=== PATIENT | female | born 1970 | race Hispanic/Latino ===

== ENCOUNTER 2022-12-17 09:34 | Day surgery (SDC) | payer BC ==
[~2022-12-17] VITALS: Ht 165.1 cm; Wt 76.2 kg
[~2022-12-17 09:34] MED LIST: ATEN50TA PO; IOHEXOL-350 75 ML VIAL IV ONE; PANT40TA54 PO
[2022-12-17 11:00] VITALS: BP 160/89
[2022-12-17 14:50] VITALS: BP 114/64
[2022-12-17 15:00] VITALS: BP 116/83
[2022-12-17 15:10] VITALS: BP 115/82
[2022-12-17 15:20] VITALS: BP 125/84
== END 2022-12-17 15:30 | disposition home or self-care (01) ==
LOC: ENDO 09:34 → DAH 09:34 → ENDO 15:30
PROVIDERS: ATTEND Internal Medicine
DX: R93.5 Abnormal findings on diagnostic imaging of other abdominal regions, including retroperitoneum (principal); Z20.822 Contact with and (suspected) exposure to COVID-19; K31.89 Other diseases of stomach and duodenum; K44.9 Diaphragmatic hernia without obstruction or gangrene; I10 Essential (primary) hypertension; Z98.890 Other specified postprocedural states; Z80.0 Family history of malignant neoplasm of digestive organs; Z98.891 History of uterine scar from previous surgery; Z90.49 Acquired absence of other specified parts of digestive tract; Z90.710 Acquired absence of both cervix and uterus; Z79.899 Other long term (current) drug therapy; Z88.0 Allergy status to penicillin
CPT/HCPCS: 87426; 43238; 43239; Q9967; A4620; A4215 ×4; A4223; A4657; A7002; A4222; A4221; A4663; A4216; J7030; A4606